=== PATIENT | female | born 1975 | race Caucasian/White ===

== ENCOUNTER 2018-04-09 17:07 | Emergency (ER) | payer OTHER ==
[2018-04-09 17:17] VITALS: BP 133/81
--- NOTE | 2018-04-09 17:36 | EDPHY ---
HPI/HX/ROS/PE/MDM Narrative: CHIEF COMPLAINT: Left leg swelling HPI: The patient is a 43-year-old female with no significant past medical history. She has no history of blood clot. She presents complaint of a bulging vein to the anterior surface of her left knee overlying the patella approximately 2-3 days ago. This was associated with some diffuse leg swelling. She states the vein appears to have"burst"and is no longer swollen. She denies chest pain or shortness of breath. She was at a routine visit for her family member and that physicians suggested that she go to an emergency room to make sure she is not have a DVT. REVIEW OF SYSTEMS: Aside from elements discussed in the HPI, a comprehensive 10-point review of systems was reviewed and is negative. PMH: None significant. No history of blood clot. SOCIAL HISTORY: Denies alcohol or drug abuse. PHYSICAL EXAM: General:Patient is alert, in no acute distress. Respiratory:No respiratory distress. Breath sounds normal bilaterally. Cardiovascular: Regular rate and rhythm. Strong peripheral pulses. Normal cap refill. Abdomen:The abdomen is nontender to palpation. There are no peritoneal signs. There are normal bowel sounds. Back: Normal to inspection. No tenderness to palpation. Skin: Normal color. No rash. Warm and dry. Extremities: Left lower extremity: Linear discoloration is present associated with some mild tenderness over the anterior surface of the patella and soft tissue. There is mild posterior calf tenderness. No cords are palpable. No erythema or warmth. Neuro: Oriented x3. Normal motor function. Normal sensory function. MDM: This patient presents with a bulging vein in her left lower extremity associated with some posterior calf discomfort. Exam is negative for evidence of infection or trauma. We performed an ultrasound to rule out DVT and this reveals only a Bakers cyst. I see no evidence of severe vascular emergency. The patient was given reassurance and referral to Orthopedic surgery, as well as strict return precautions. - Data Points Imaging Results: Imaging Impressions Extremity Venous Study 04/09/18 17:13 Impression: No deep venous thrombosis left leg. Results called and discussed with Javan Ashley MD at 04/09/2018 17:52. General Time Seen by Provider: 04/09/18 17:11 Initial Vital Signs: Initial Vital Signs Temperature (C) 36.6 C 04/09/18 17:12 Heart Rate 80 04/09/18 17:12 Respiratory Rate 18 05/30/18 17:12 Blood Pressure 133/81 H 04/09/18 17:12 O2 Sat (%) 97 04/09/18 17:12 O2 Delivery Mode Room Air Departure - Departure Disposition: Home, Routine, Self-Care Clinical Impression: Elliott's cyst of knee, Varicose vein of leg Condition: Good Instructions: Bakers Cyst (ED) Additional Instructions: Follow-up with an claim benefit specialist within the next week. Return to the emergency department for chest pain, shortness of breath, worsening pain, swelling or other concerns. Use ibuprofen as directed. Referrals: NONE *PRIMARY CARE P,. [Primary Care Provider] - As per Instructions Benito Post MD [Medical Doctor] - As per Instructions
== END 2018-04-09 18:10 | disposition home or self-care (01) ==
LOC: CED 17:07
DX: M71.22 Synovial cyst of popliteal space [Baker], left knee (principal); I83.92 Asymptomatic varicose veins of left lower extremity
CPT/HCPCS: 93971-PO